=== PATIENT | female | born 1965 ===

== ENCOUNTER 2025-09-18 09:11 | Outpatient (CLI) | payer OTHER ==
[2025-09-21] MEDS ORDERED: PEPCID AC20 MG (10:04)
== END 2025-09-18 09:15 | disposition home or self-care (01) ==
LOC: RAD 09:11
PROVIDERS: ATTEND Colon & Rectal Surgery
DX: D12.9 Benign neoplasm of anus and anal canal (principal); N75.1 Abscess of Bartholin's gland; K92.1 Melena